=== PATIENT | male | born 1950 | race Caucasian/White ===

== ENCOUNTER 2017-01-20 15:27 | Emergency (ER) | payer MEDICARE, OTHER ==
[~2017-01-20 15:27] MED LIST: ADULT ASPIRIN81 MG PO; ASPIR 8181 M1 PO; ASPIR-LOW81 M1 PO; ASPIRIN325 M3 PO; ATIVAN0.5 M1 PO; ATIVAN1 M2 PO; CEFADROXIL500 M1 PO; COLD MEDICINE PO; FLEXERIL10 MG PO; H PO; LORAZEPAM PO; NORCO 5-325 TA1 EACH PO; NORCO 5/325 TAB1 TAB PO; NORVASC2.5 M1 PO; VITAMIN K PO
[2017-01-20] MEDS ORDERED: UROCIT-K15 ME1 PO (15:49)
[2017-01-20] MEDS ORDERED: NORCO 5/3251 TAB PO (17:49)
== END 2017-01-20 17:59 ==
LOC: EDMED 15:27
DX: M54.6 Pain in thoracic spine (principal)